=== PATIENT | male | born 2000 ===

== ENCOUNTER 2023-11-10 13:36 | Emergency (ER) | payer SELFPAY | END 2023-11-10 14:12 | disposition home or self-care (01) | LOC: ERS 13:36 | DX: Z02.79 Encounter for issue of other medical certificate (principal); R51.9 Headache, unspecified; F17.210 Nicotine dependence, cigarettes, uncomplicated | CPT/HCPCS: 99283 ==

== ENCOUNTER 2024-06-12 17:00 | Emergency (ER) | payer SELFPAY ==
[2024-06-12] MEDS ORDERED: Dicyclomine 20 MG TAB ONE (17:12)
[2024-06-12] MEDS ORDERED: Ondansetron ODT 4 MG TAB ONE (17:12)
[2024-06-12] MEDS ORDERED: Famotidine 20 MG TAB ONE (17:12)
== END 2024-06-12 17:53 | disposition home or self-care (01) ==
LOC: ERS 17:00
DX: R19.7 Diarrhea, unspecified (principal); R11.2 Nausea with vomiting, unspecified; F17.210 Nicotine dependence, cigarettes, uncomplicated; Z55.6 Problems related to health literacy
CPT/HCPCS: 99283; Q0162

== ENCOUNTER 2024-06-15 18:37 | Emergency (ER) | payer SELFPAY ==
[2024-06-15] MEDS ORDERED: Dexamethasone 10 MG/ML VIAL ONE (20:42)
[2024-06-15] MEDS ORDERED: Ibuprofen 200 MG TAB ONE (20:43)
[2024-06-15 21:15] LABS: Influenza A by NAA Not Detected (NotDetected); Influenza B by NAA Not Detected (NotDetected); SARS-CoV-2 NAA Rapid Test Not Detected (NotDetected)
[2024-06-15] MEDS ORDERED: Ondansetron ODT 4 MG TAB ONE (21:53)
== END 2024-06-15 22:55 | disposition home or self-care (01) ==
LOC: ERS 18:37
DX: B34.9 Viral infection, unspecified (principal); F17.210 Nicotine dependence, cigarettes, uncomplicated
CPT/HCPCS: 99283; J1100; Q0162

== ENCOUNTER 2024-09-01 15:35 | Emergency (ER) | payer SELFPAY ==
[2024-09-01] MEDS ORDERED: Lidocaine 1% PF 5 ML VIAL ONE (15:52)
[2024-09-01] MEDS ORDERED: cefTRIAXone (ROCEPHIN) 500 MG VIAL ONE (15:53)
== END 2024-09-01 16:08 | disposition home or self-care (01) ==
LOC: ERS 15:35
DX: A54.9 Gonococcal infection, unspecified (principal); K62.89 Other specified diseases of anus and rectum
CPT/HCPCS: 96372; 99282; J0696